=== PATIENT | male | born 1970 | race Caucasian/White ===

== ENCOUNTER 2019-02-13 03:08 | Emergency (ER) | payer BC, OTHER ==
[2019-02-13 05:50] VITALS: BMI 31.8
--- NOTE | 2019-02-13 09:27 | PDOC ---
History of Present Illness - General Chief Complaint: Pain Stated Complaint: PAIN IN FACE/EYES SWOLLEN Time Seen by Provider: 02/13/19 07:18 - History of Present Illness Initial Comments: HPI: 48yo M with PMH of HTN, HLD, DM, essential tremor, GERD presenting with bilateral eye swelling and pain. Suffered a corneal abrasion about one month ago for which he was treated with ointment. About two weeks ago patient developed conjunctivitis in the other eye and was prescribed ofloxacillin eye drops. Thereafter, it affected both eyes equally. Initially his symptoms improved but other the past 72 hours, they have acutely worsened such that patient decided to cut his family vacation to [place] short and drove back today. Patients daughter has had a viral illness but without no eye symptoms. Patient states he has blurry vision and photophobia. No fevers or chills. ROS: Constitutional: no fever, non chills HEENT: no throat pain, +eyelid swelling Cardiovascular: no chest pain, no palpitations Respiratory: no cough, no shortness of breath Gastrointestinal: no abdominal pain, no nausea Genitourinary: no dysuria, no hematuria Musculoskeletal: no myalgia, no arthralgia Skin: no rash, no itching Neurologic: no headache, no weakness PE: General: Awake, alert, and fully oriented, in no acute distress Head: No signs of trauma Eyes: PERRL, EOMI, Upper eyelid edematous, erythematous; pain elicited in left eye upon leftward movement but this appears to be more consistent with pain from swelling ENT: Moist mucus membranes Neck: Normal ROM, supple Lungs: Lungs clear, normal breath sounds Cardio: Regular rhythm, S1 and S2 present Abdomen: Soft, nontender Extremities: Normal range of motion, Distal pulses present Skin: Warm, dry, normal turgor Neurologic: Cranial nerves II through XII grossly intact. Normal speech ED Course/MDM: DDX including but not limited to conjunctivitis, allergic reaction, inflammation , preseptal cellulitis, opthalmitis, scleritis Presentation most consistent with allergic or contact conjunctivitis Augmentin Compresses Benadryl Continue eyedrops To follow up with ophthalmology: patient already has an appointment to be seen this afternoon Return precautions Stable for discharge 02/13/19 09:26 Past History - Past Medical History Allergies/Adverse Reactions: Allergies Allergy/AdvReac Type Severity Reaction Status Date / Time No Known Allergies Allergy Verified 02/13/19 05:50 Home Medications: Ambulatory Orders Propranolol HCl 5 mg PO DAILY 08/19/13 metFORMIN HCL [Glucophage] 750 mg PO BID 08/19/13 Glipizide [Glipizide ER] 10 mg PO DAILY 03/30/15 Amoxicillin/Potassium Clav [Augmentin 875-125 Tablet] 1 each PO BID #28 tablet 02/13/19 Canagliflozin [Invokana] 300 mg PO DAILY 02/13/19 Diphenhydramine HCl [Benadryl -] 25 mg PO Q6H PRN #60 capsule 02/13/19 Dulaglutide [Trulicity] 0.75 mg SQ WEEKLY 02/13/19 Lisinopril 5 mg PO DAILY 02/13/19 Pantoprazole Sodium [Protonix -] 20 mg PO DAILY 02/13/19 COPD: No Diabetes: Yes Dialysis: Yes (GERD, ?IBS, hiatal hernia) HTN: Yes Hypercholesterolemia: Yes - Immunization History Immunization Up to Date: Yes - Psycho Social/Smoking Cessation Hx Smoking History: Never smoked Have you smoked in the past 12 months: No Hx Alcohol Use: Yes (occasion) Drug/Substance Use Hx: No Substance Use Type: None *Physical Exam - Vital Signs Last Vital Signs Temp Pulse Resp BP Pulse Ox 98.6 F 72 18 148/86 97 02/13/19 03:10 02/13/19 03:10 02/13/19 03:10 02/13/19 03:10 02/13/19 03:10 Discharge - Discharge Information Problems reviewed: Yes Clinical Impression/Diagnosis: Eyelid pain of both eyes Condition: Stable Disposition: HOME - Additional Discharge Information Prescriptions: Amoxicillin/Potassium Clav [Augmentin 875-125 Tablet] 1 each PO BID #28 tablet Diphenhydramine HCl [Benadryl -] 25 mg PO Q6H PRN #60 capsule PRN Reason: Pain - Follow up/Referral Referrals: Mykel Watson [Primary Care Provider] - - Patient Discharge Instructions Patient Printed Discharge Instructions: DI for Eye Pain Additional Instructions: You came into the emergency department for eye pain Prescriptions have been sent to your pharmacy including antibiotics. Take as instructed. Use warm compresses at home. Continue using the eye drops you already have. You can take [id number] tylenol or motrin for pain. Follow the instructions on the medication bottle. Follow-up with the [facility] we have referred you to in order to discuss this ED visit and to further evaluate your symptoms. Your care is not complete until you do so. Call and make an appointment. Immediate medical attention is required if you have: you develop worsening pain , high fevers, or any new or concerning symptoms. If you think you are having an emergency, call for emergency medical services or present to the emergency department right away - Post Discharge Activity Work/Back to School Note: Back to Work
[2019-02-13 10:13] VITALS: BP 139/88; PULSE 79; TEMP 97.9
--- NOTE | 2019-02-13 10:45 | PDOC ---
Attending Attestation - Resident Resident Name: Prema Kaye - ED Attending Attestation I have performed the following: I have examined & evaluated the patient, The case was reviewed & discussed with the resident, I agree w/resident's findings & plan - HPI HPI: 02/13/19 10:41 48y/o M diabetic with recent conjunctivitis treated with ofloxacillin and improved presents now with several days of progressive b/l upper eyelid swelling /erythema. no va change, no eye pain, no headache, no f/c. + discharge when awakens, normal glucose levels. denies known allergies or new exposures, no new contacts. - Physicial Exam PE: 02/13/19 10:42 vss well appearing, conversant, nad b/l upper eyelid edema/erythema/chemosis, no conjunctival erythema/injection/ icterus. perrl, eomi. VA normal. op clear no other rash - Medical Decision Making 02/13/19 10:43 48y/o M diabetic with b/l eyelid swelling, seems most c/w allergic/contact conjunctivitis though some surrounding erythema in diabetic raises concern for preseptal cellulitis. no evidence for ophthalmitis or scleritis. cold compresses, trial of benadryl continue erythromycin ointment augmentin abx course d/c with ophtho f/u, understands return criteria
== END 2019-02-13 09:50 | disposition home or self-care (01) ==
LOC: JER 03:08
DX: H10.13 Acute atopic conjunctivitis, bilateral (principal); H02.841 Edema of right upper eyelid; H02.844 Edema of left upper eyelid; I10 Essential (primary) hypertension; E78.00 Pure hypercholesterolemia, unspecified; E11.9 Type 2 diabetes mellitus without complications; Z79.84 Long term (current) use of oral hypoglycemic drugs; K21.9 Gastro-esophageal reflux disease without esophagitis
CPT/HCPCS: 99282-25

== ENCOUNTER 2020-08-07 20:23 | Emergency (ER) | payer BC, OTHER ==
[2020-08-07 20:59] VITALS: BP 128/72; PULSE 68; TEMP 98.1; BMI 29.7
[2020-08-07] MEDS ORDERED: LIDOCAINE 5% TOPICAL PATCH TP ONE (22:39)
[2020-08-07] MEDS ORDERED: METHOCARBAMOL 500 MG TABLET PO ONE (22:39)
[2020-08-07] MEDS ORDERED: KETOROLAC TROMETHAMINE 60 MG/2 ML VIAL IM ONE (22:39)
[2020-08-07] MEDS ORDERED: METHOCARBAMOL 500 MG TABLET ONE (22:44)
[2020-08-07] MEDS ORDERED: LIDOCAINE 5% TOPICAL PATCH ONE (22:44)
[2020-08-07] MEDS ORDERED: KETOROLAC TROMETHAMINE 60 MG/2 ML VIAL ONE (22:44)
[2020-08-08] MEDS ORDERED: LIDOCAINE PATCH REMOVAL MC SCH (10:30)
== END 2020-08-08 00:39 | disposition home or self-care (01) ==
LOC: JER 20:23
PROC: 3E0233Z Introduction of Anti-inflammatory into Muscle, Percutaneous Approach (ICD-10-PCS; principal; 2020-08-07)
DX: M54.12 Radiculopathy, cervical region (principal); M54.16 Radiculopathy, lumbar region
CPT/HCPCS: 72125-TC; 72148-TC; 82962; 99285-25

== ENCOUNTER 2023-09-29 23:47 | Emergency (ER) | payer BC ==
[2023-09-29 23:54] VITALS: BP 136/67; PULSE 65; RESP 18; TEMP 97.5; BMI 31.7
== END 2023-09-30 01:56 | disposition home or self-care (01) ==
LOC: JER 23:47
DX: R10.9 Unspecified abdominal pain (principal); X50.0XXA Overexertion from strenuous movement or load, initial encounter; Y99.0 Civilian activity done for income or pay
CPT/HCPCS: 99283-25